=== PATIENT | female | born 2000 | race Caucasian/White ===

== ENCOUNTER 2024-07-03 15:44 | Observation (INO) | payer OTHER, MEDICAID, SELFPAY ==
--- NOTE | 2024-07-03 16:12 | DI.US.S_ITS ---
PROCEDURE: US OB >= 14 WEEKS FETUS INDICATIONS: cervical length OUTSIDE/PRIOR DATING DATA: The calculations are made using the JUSTO of 10/17/2024. TECHNIQUE: Real-time scanning was performed of the fetus, with image documentation and biometric measurements. Endovaginal scanning: Not performed COMPARISON: None. FINDINGS: General: A single living intrauterine gestation is present. Presentation: Breech. Placenta: Placental position is posterior , without previa. Amniotic fluid index: 22.2 cm, normal range is 5-24 cm. Single deepest vertical pocket is 7.6 cm. heart rate: 144 beats per minute. Maternal cervical canal: Significant funneling of the cervix with no remaining close tissue. IMPRESSION: Significant funneling of the cervix with no remaining closed tissue. We strive to produce accurate, complete, and clear reports of imaging services. To assist us in improving patient care, this report was composed using standard report templates and voice recognition software. Therefore, it may contain abnormal punctuation, insertions and/or omissions. Occasional wrong-word or sound-alike substitutions may occur. Though we review the report and make efforts to correct it, we do recommend that the report be read carefully in proper context to recognize any text inaccuracies. Dictated by: Ray Price M.D. on 07/03/2024 at 17:00 Approved by: Ray Price M.D. on 07/03/2024 at 17:04
[2024-07-03 16:17] LABS: Appearance Urine UA CLEAR; Bilirubin Urine UA NEGATIVE (NEGATIVE); Color Urine UA YELLOW; Glucose Urine UA NEGATIVE (Negative); Ketones Urine UA NEGATIVE (NEGATIVE); Leukocyte Esterase Urine UA TRACE (NEGATIVE); Nitrite Urine UA NEGATIVE (Negative); Occult Blood Urine UA NEGATIVE (Negative); Protein Urine UA NEGATIVE (Negative); Urobilinogen Urine UA 0.2 E.U./dL (0.2)
[2024-07-03 16:19] LABS: pH Urine UA 6.5 (4.5-8.0)
[2024-07-03] MEDS: NIFEdipine 10 MG CAPSULE PO ×4 (16:24→17:22)
[2024-07-03 16:29] LABS: Amorphous Sediment Urine 1+; Bacteria Urine Few (2-10); Culture Indicated Urine Specimen Cultured; RBC Urine None Seen (0-5/HPF); Squamous Epithelial Cell Urine None Seen (0-5/HPF); Urine Volume 10mL (spun); WBC Urine 1-5/HPF (0-5/HPF)
[2024-07-03] MEDS: MAGNESIUM SULFATE 6 GM in SODIUM CHLORIDE 0.9% 100 ML IV (16:32)
[2024-07-03] MEDS: LACTATED RINGERS 1,000 ML 100 ML IV (16:35)
--- NOTE | 2024-07-03 16:48 | P.HPOB_ITS ---
OB HPI Date/Time Date of admission: 07/03/24 Date Patient Seen: 07/03/24 Time Patient Seen: 16:48 History of Present Condition Chief complaint: Early Labor Estimated Gestational Age (weeks): 25+3 : 1 Para: 0 Obstetrical complications: other (incompetent cervix) Medical complications OB: none Preadmission Labs Last OB Lab Results: 2 Blood Type Pending 07/03/24 16:29 Antibody Screen Pending 07/03/24 16:29 Hct 35.9 % (36-46) L 07/03/24 16:28 Hgb 12.2 g/dL (12.0-16.0) 07/03/24 16:28 Evaluation Evaluation Baseline heart rate: 150 Variability: Average (6-10) monitor accelerations: Present Monitor Decelerations: Variable (few) Contraction Frequency (minutes): 3 Uterine Contraction Intensity: Mild Category of Tracing: Appropriate for gestational age Dilation (cm): 2 Effacement (%): 80 station: -3 Position of cervix: mid Consistency: soft Comments: Bedside ultrasound shows funneling of the membranes. No cervix visualized by ultrasound. Meds Home Medications and Allergies Allergies Allergy/AdvReac Type Severity Reaction Status Date / Time No Known Drug Allergies Allergy Verified 07/03/24 16:52 OB Exam Vital signs Blood Pressure: 137/82 Pulse Rate: 119 Respiratory Rate: 16 Temperature: 97.9 F Narrative Exam Narrative: Generally: Patient lying in bed, mildly uncomfortable with contractions, no acute distress Lungs: Clear to auscultation bilaterally Cardiovascular: Slightly tachycardic. Regular rhythm. Fundal height: 26 cm Extremities: No edema Vaginal exam: 2 cm/1.5 cm in length/-3/soft On bedside ultrasound: No cervix visualized. Baby in the breech presentation. Funneling of the membranes. Objective Labs 07/03/24 16:28 07/03/24 16:29 Labs: Laboratory Results - last 24 hr 07/03/24 15:45 Urine Color Yellow Urine Appearance Clear Urine pH 6.5 Ur Specific [place] 1.010 Urine Protein Negative Urine Glucose (UA) Negative Urine Ketones Negative Urine Occult Blood Negative Urine Nitrate Negative Urine Bilirubin Negative Urine Urobilinogen 0.2 Ur Leukocyte Esterase Trace H Urine RBC None seen Urine WBC 1-5/hpf Ur Squamous Epith Cells None seen Amorphous Sediment 1+ Urine Bacteria Few (2-10) H Ur Culture Indicated? Specimen cultured Vol Urine Centrifuged 10ml (spun) Assessment and Plan Assessment and Plan Assessment and Plan narrative: Assessment: 23-year-old 1 para 0 at 25-,3/7 weeks gestation with an incompetent cervix, in labor Plan: First dose of betamethasone, second series 6 g loading dose of magnesium sulfate, 2 g maintenance Ancef 2 g IV Accepting physician at [facility] is Dr. Evelina Garcia Patient to go by [facility] Time-Based Coding :: [TOTAL MINUTES] spent with patient and on the chart (including review of chart, obtaining history, exam, reviewing outside data, placing orders, documenting exam and treatment plan, and counseling patient) on [DATE]. 92 min total
[2024-07-03 16:53] LABS: Alanine Aminotransferase 18 IU/L (<35); Albumin 3.6 g/dL (3.5-5.0); Albumin Globulin Ratio 1.1 (1.0-2.8); Alkaline Phosphatase 104 U/L (38-126); Aspartate Aminotransferase 19 IU/L (14-36); BUN Creatinine Ratio 22.5 (6-22); Bilirubin Total 0.4 mg/dL (0.2-1.3); Blood Urea Nitrogen 9 mg/dL (7-17); Carbon Dioxide 21 mmol/L (22-32); Chloride 106 mmol/L (98-107); Estimated Glomerular Filt Rate > 60 mL/min (>60); Globulin 3.4 g/dL (1.7-4.1); Glucose 124 mg/dL (70-100); HEMOLYSIS < 15 (0-50); Potassium 3.8 mmol/L (3.4-5.1); Sodium 134 mmol/L (137-145)
[2024-07-03 16:53] LABS: Add Manual Diff / Slide Review NO; Basophils Absolute Auto 0 /uL (0-100); Basophils Percent Auto 0.2 % (0-2); Eosinophils Absolute Auto 100 /uL (0-450); Eosinophils Percent Auto 0.7 % (2-4); Hematocrit 35.9 % (36-46); Hemoglobin 12.2 g/dL (12.0-16.0); Lymphocytes Absolute Auto 1700 /uL (1100-4500); Lymphocytes Percent Auto 11.8 % (25-40); Mean Corpuscular HGB Conc 34.1 % (30-36); Mean Corpuscular Hemoglobin 30.5 PG (26-34); Mean Corpuscular Volume 89.5 fL (80-100); Monocytes Absolute Auto 900 /uL (0-900); Monocytes Percent Auto 6.5 % (3-14); Neutrophils Absolute Auto 11500 /uL (1500-7000); Neutrophils Percent Auto 80.8 % (50-75); Platelet Count 286 X10^3/uL (150-400); Red Blood Cell Count 4.01 X10^6/uL (4.0-5.2); Red Cell Distribution Width 13.5 % (11.6-14.8); White Blood Cell Count 14.2 X10^3/uL (4.5-11.0)
[2024-07-03] MEDS: MAGNESIUM SULFATE 20 GM/500 ML IV.SOLN IV (16:57)
[2024-07-03 16:59] VITALS: BP 137/82; PULSE 119; RESP 16; TEMP 36.6
[2024-07-03] MEDS: CEFAZOLIN 2 GM/100 ML PREMIX 100 ML IV (17:01)
[2024-07-03] MEDS: BETAMETHASONE 30 MG/5 ML MDV 12 MG IM (17:17)
== END 2024-07-03 17:50 | disposition short-term general hospital (02) ==
PROVIDERS: Admitting Provider Obstetrics & Gynecology; PCP Obstetrics & Gynecology; Referring Provider Obstetrics & Gynecology; Visit Provider Obstetrics & Gynecology
DX: O60.02 Preterm labor without delivery, second trimester (principal); O34.32 Maternal care for cervical incompetence, second trimester; Z3A.25 25 weeks gestation of pregnancy
CPT/HCPCS: 59025; 59050; 76811; 80053; 81001; 85025; 86850; 86900; 86901; 87086; 96360; 96372; G0378; G0379; J0690; J0702; J3475